=== PATIENT | female | born 1995 | race Caucasian/White ===

== ENCOUNTER 2018-08-27 17:44 | Emergency (ER) | payer MEDICAID, OTHER ==
[2018-08-27] MEDS ORDERED: Ibuprofen TAB* 600 MG PO ONE (19:49)
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
[2018-08-27 21:45] VITALS: BP 102/71
== END 2018-08-27 21:45 | disposition home or self-care (01) ==
LOC: ED 17:44
DX: S81.811A Laceration without foreign body, right lower leg, initial encounter (principal); S93.401A Sprain of unspecified ligament of right ankle, initial encounter; V49.9XXA Car occupant (driver) (passenger) injured in unspecified traffic accident, initial encounter
CPT/HCPCS: 12001; 99282; A9270-GY